=== PATIENT | female | born 1960 | race Hispanic/Latino ===

== ENCOUNTER 2024-07-09 14:34 | Emergency (ER) | payer BC ==
--- OUTSIDE RECORDS SUMMARY | 2024-07-09 14:36 | XMS REPORT | Continuity of Care Document ---
Author Name Unknown Address [address] [place] [address] [employer]connect Address [address] [place] [address] [address] [place] [address] Care Team Providers Care Public Health Informatician Name Role Phone [email or web address] Attending Clinician Unavaila ble [email or web address] Admitting Clinician Unavaila ble Encounters Start Date/Time End Date/Time Encounter Type Admission Type Attending Clinicians Care Facility Care Department Encounter ID Source 2023-06-09 00:00:00 2023-06-09 00:00:00 Outpatient [email or web address] [facility] [id number] [facility]
[2024-07-09] MEDS ORDERED: ALBUTEROL 2.5 MG/3 ML NEB SOL ONE (14:51)
[2024-07-09] MEDS ORDERED: IPRATROPIUM BROM 0.5MG/2.5ML ONE ×2 (14:51→16:40)
[2024-07-09] MEDS ORDERED: METHYLPREDNISOLONE 125 MG INJ ONE (14:51)
[2024-07-09] MEDS ORDERED: ACETAMINOPHEN 325 MG TABLET ONE (14:52)
[2024-07-09 15:11] LABS: SARS-CoV-2 Antigen CONTROL BLUE LINE VIS/BG OK; SARS-CoV-2 Antigen Rapid Res Negative (Negative)
--- NOTE | 2024-07-09 15:13 | RAD REPORT ---
EXAMINATION: ONE VIEW CHEST XR CLINICAL INDICATION: CONGESTION TECHNIQUE: Frontal chest projection is submitted. Examination is limited by patient positioning and t echnique. COMPARISON: 03/24/2021 FINDINGS: The lungs are well inflated and clear. The heart is upper limit of normal in size. No displaced fract ures identified. IMPRESSION: No acute intrathoracic abnormalities.
[2024-07-09] MEDS ORDERED: MAGNESIUM SULFATE 1 gm IVPB 1 GM/100 ML BAG IV ONE (16:39)
[2024-07-09] MEDS ORDERED: LEVALBUTEROL 1.25 MG/3 ML NEB ONE (16:40)
--- NOTE | 2024-07-09 17:26 | EDPHYS ---
Physician Documentation [facility] Name: Angelica Marte Age: 63 yrs Sex: Female : 1960 Arrival Date: 07/09/2024 Time: 14:34 Bed 5 Private MD: ED Physician Sky Paz HPI: 07/09 15:03 This 63 yrs old Female presents to ER via Ambulatory with complaints of Cough, rn Congestion, Sore Throat. 15:07 The patient or guardian reports cough, difficulty breathing, flu symptoms. rn 15:09 Onset: The symptoms/episode began/occurred last night. Severity of symptoms: At their rn worst the symptoms were mild, in the emergency department the symptoms are unchanged. Associated signs and symptoms: Pertinent positives: fever, rhinorrhea. The patient has not experienced similar symptoms in the past. The patient has not recently seen a physician. Patient reports history of asthma, started feeling sick yesterday with cough and shortness of breath with wheezing.. Historical: - Allergies: 14:41 No Known Allergies; hb - Family history:: not pertinent. - Hospitalizations: : No recent hospitalization is reported. ROS: 15:09 Constitutional: Negative for fever, chills, and weight loss, ENT: Positive for rn congestion and sore throat Cardiovascular: Negative for palpitations, and edema Respiratory: Positive for cough and shortness of breath Abdomen/GI: Negative for abdominal pain, nausea, vomiting, diarrhea, and constipation, MS/Extremity: Negative for injury and deformity, Skin: Negative for injury, rash, and discoloration, Neuro: Negative for headache, weakness, numbness, tingling, and seizure, Exam: 15:09 Constitutional: This is a well developed, well nourished patient who is awake, alert, rn mild tachypnea Cardiovascular: Regular rate and rhythm. No pulse deficits. Respiratory: No increased work of breathing, no retractions or nasal flaring. Abdomen/GI: Soft, non-tender MS/ Extremity: Pulses equal, no cyanosis. Neuro: Awake and alert, GCS 15 Vital Signs: 14:39 BP 145 / 85; Pulse 81; Resp 20; Temp 99; Pulse Ox 96% on R/A; Weight 47.63 kg; Height 5 hb ft. 0 in. ; Pain 3/10; 14:39 Body Mass Index 20.51 (47.63 kg, 152.4 cm) hb 14:39 Pain Scale: Adult hb MDM: 14:42 Medical Screening Exam initiated rn 17:23 Differential Diagnosis: Bronchitis Influenza Upper Respiratory Infection Viral Syndrome rn Pneumonia. Data reviewed: vital signs, nurses notes, lab test result(s), radiologic studies, plain films, and as a result, I will discharge patient. Consideration of Admission/Observation Escalation of care including admission/observation considered. Patient markedly improved, wants to go home as opposed to admission. No oxygen requirement. Will discharge home with strict return precautions.. Care significantly affected by the following chronic conditions: Chronic Obstructive Pulmonary Disease. Counseling: I had a detailed discussion with the patient and/or guardian regarding the historical points, exam findings, and any diagnostic results supporting the discharge/admit diagnosis, lab results, radiology results, the need for further work-up and treatment in the hospital. ED course: I personally spent 35 minutes engaged in work directly related to the individual patient's care. This does not include any time spent performing procedures. The patient has been deemed critically ill because of 6 nebulizer treatments, IV steroids and magnesium given for severe COPD exacerbation.. 07/09 14:41 Order name: Flu; Complete Time: 15:33 hb 07/09 14:41 Order name: SARS RAPID; Complete Time: 15:29 hb 07/09 14:41 Order name: Chest Single View XRAY; Complete Time: 15:29 hb Administered Medications: 15:02 Drug: MethylPrednisoLONE IVP 125 mg IVP once {Note: Given IM.} Route: IVP; Site: Other; 10 15:02 Drug: DuoNeb Nebulize (3:1) (2.5 mg - 0.5 mg) 3 ml Nebulizer once Route: Nebulizer; cm10 15:02 Drug: Acetaminophen PO 650 mg PO once Route: PO; cm10 16:42 Drug: Levalbuterol Inhalation 1.25 mg Inhalation once Route: Inhalation; cm10 16:42 Drug: Ipratropium Inhalation Aerosol 0.5 mg Inhalation once Route: Inhalation; cm10 16:52 Drug: Magnesium Sulfate IVPB 1 grams IVPB once over 1 hrs Route: IVPB; Infused Over: 1 cm10 hrs; Site: right forearm; 18:11 Drug: AZITHromycin PO 500 mg PO once Route: PO; 4 18:25 Follow up: Response: Medication administered at discharge. jb4 Disposition Summary: 07/09/24 17:25 Discharge Ordered Notes: Location: Home rn Problem: an acute exacerbation rn Symptoms: have improved rn Condition: Stable rn Diagnosis - COPD/ Chronic obstructive pulmonary disease with (acute) exacerbation rn - Fever, unspecified rn Followup: rn - With: Private Physician - When: As needed - Reason: Recheck today's complaints, Re-evaluation by your physician Discharge Instructions: - Discharge Summary Sheet rn - Chronic Obstructive Pulmonary Disease rn - Fever, Adult rn Forms: - Medication Reconciliation Form rn - Antibiotic learning design specialist - Prescription Opioid Use rn - Patient Portal Instructions rn - Leadership Thank You Letter rn Prescriptions: - albuterol sulfate 90 mcg/actuation Inhalation HFA Aerosol Inhaler - inhale 2 inhalation INHALATION route every 4 to 6 hours As needed as needed for rn bronchospasm; administer via ventilator; 1 unit; Refills: 0, Product Selection Permitted - Prednisone 20 mg Oral Tablet - take 3 tablets ORAL route once daily for 5 days; 15 tablet; Refills: 0, Product rn Selection Permitted - Albuterol Sulfate 2.5 mg /3 mL (0.083 %) Inhalation Solution for Nebulization - inhale 2 puff NEBULIZATION route every 8 hours As needed; 1 unit; Refills: 0, rn Product Selection Permitted - Zithromax Z-Mariano 250 mg Oral Tablet - take 1 tablet ORAL route as directed for 5 days Day 1 - take two (2) tablets rn one time. Day 2, 3, 4 , 5 take one (1) tablet once daily.; 6 tablet; Refills: 0, Product Selection Permitted Signatures: Dispatcher [employer] EDSky Vergara MD MD rn Baxter, Heather, RN RN hb Bryson, James, RN RN jb4 Alexandra Williamson RN RN cm10 Corrections: (The following items were deleted from the chart) 14:55 14:42 Group A Streptococcus Rapid [id number] ordered. EDMS EDMS
--- NOTE | 2024-07-09 17:26 | ER ---
Nurse's Notes [facility] Name: Angelica Marte Age: 63 yrs Sex: Female : 1960 Arrival Date: 07/09/2024 Time: 14:34 Bed 5 Private MD: Diagnosis: COPD/ Chronic obstructive pulmonary disease with (acute) exacerbation;Fever, unspecified Presentation: 07/09 14:39 Chief complaint: Painful cough, SOB, sore throat, headache, and chest tightness since hb last night. Coronavirus screen: Client presents with at least one sign or symptom that may indicate coronavirus-19. Provider contacted for isolation considerations. Ebola Screen: No symptoms or risks identified at this time. Initial Sepsis Screen: Does the patient meet any 2 criteria? No. Patient's initial sepsis screen is negative. Does the patient have a suspected source of infection? No. Patient's initial sepsis screen is negative. Risk Assessment: Do you want to hurt yourself or someone else? Patient reports no desire to harm self or others. Onset of symptoms was July 08, 2024. 14:39 Method Of Arrival: Ambulatory 14:39 Acuity: BELEN 3 hb Historical: - Allergies: 14:41 No Known Allergies; hb - Family history:: not pertinent. - Hospitalizations: : No recent hospitalization is reported. Assessment: 15:02 General: Appears in no apparent distress. uncomfortable, Behavior is calm, cooperative. cm10 Neuro: No deficits noted. Level of Consciousness is awake, alert, obeys commands, Oriented to person, place, time, situation. Respiratory: No deficits noted. Reports cough that is Airway is patent Respiratory effort is even, unlabored, Respiratory pattern is regular, symmetrical, Breath sounds with wheezes bilaterally. 18:25 Reassessment: Patient appears in no apparent distress at this time. Patient and/or jb4 family updated on plan of care and expected duration. Pain level reassessed. Patient is alert, oriented x 3, equal unlabored respirations, skin warm/dry/pink. Vital Signs: 14:39 BP 145 / 85; Pulse 81; Resp 20; Temp 99; Pulse Ox 96% on R/A; Weight 47.63 kg; Height 5 hb ft. 0 in. ; Pain 3/10; 14:39 Body Mass Index 20.51 (47.63 kg, 152.4 cm) hb 14:39 Pain Scale: Adult hb ED Course: 14:36 Patient arrived in ED. mg5 14:41 Triage completed. hb 14:42 Sky Paz MD is Attending Physician. rn 14:42 Arm band placed on. hb 14:48 Alexandra Williamson, RN is Primary Nurse. cm10 14:50 SARS RAPID Sent. ss 14:50 Flu Sent. ss 15:09 Chest Single View XRAY In Process Unspecified. EDMS 16:50 Inserted saline lock: 20 gauge in right forearm, using aseptic technique. Flushed with cm10 10 mL NS. 18:25 No provider procedures requiring assistance completed. IV discontinued, intact, jb4 bleeding controlled, No redness/swelling at site. Pressure dressing applied. Patient maintains SpO2 saturation greater than 95% on room air. Administered Medications: 15:02 Drug: MethylPrednisoLONE IVP 125 mg IVP once {Note: Given IM.} Route: IVP; Site: Other; cm10 15:02 Drug: DuoNeb Nebulize (3:1) (2.5 mg - 0.5 mg) 3 ml Nebulizer once Route: Nebulizer; cm10 15:02 Drug: Acetaminophen PO 650 mg PO once Route: PO; cm10 16:42 Drug: Levalbuterol Inhalation 1.25 mg Inhalation once Route: Inhalation; cm10 16:42 Drug: Ipratropium Inhalation Aerosol 0.5 mg Inhalation once Route: Inhalation; cm10 16:52 Drug: Magnesium Sulfate IVPB 1 grams IVPB once over 1 hrs Route: IVPB; Infused Over: 1 cm10 hrs; Site: right forearm; 18:11 Drug: AZITHromycin PO 500 mg PO once Route: PO; jb4 18:25 Follow up: Response: Medication administered at discharge. jb4 Medication: 18:25 VIS not applicable for this client. jb4 Outcome: 17:25 Discharge ordered by . rn 18:25 Discharged to home ambulatory, with family, jb4 18:25 Condition: stable 18:25 Discharge instructions given to patient, Instructed on discharge instructions, follow up and referral plans. medication usage, Demonstrated understanding of instructions, follow-up care, medications, Prescriptions given X 4, 18:27 Patient left the ED. jb4 Signatures: Dispatcher [employer] EDTN Sky Paz MD MD rn Blanchard, Shelby, RN RN ss Baxter, Heather, RN RN Yanick Meza RN RN jb4 Alexandra Williamson RN RN cm10 Arelis Nuñez mg5 Corrections: (The following items were deleted from the chart) 14:42 14:39 BP 145 / 85; Pulse 81bpm; Resp 20bpm; Pulse Ox 95% RA; Temp 99F; 47.63 kg; Height hb 5 ft. 0 in.; BMI: 20.5; Pain 3/10, Adult; hb 14:46 14:39 Acuity: BELEN 4 hb hb
[2024-07-09] MEDS ORDERED: AZITHROMYCIN 250 MG TAB ONE (18:09)
[2024-07-09 19:46] VITALS: BP 145/85; TEMP 99; O2SAT 96
== END 2024-07-09 18:27 | disposition home or self-care (01) ==
LOC: ER 14:34
DX: J44.1 Chronic obstructive pulmonary disease with (acute) exacerbation (principal); R50.9 Fever, unspecified; Z11.52 Encounter for screening for COVID-19
CPT/HCPCS: 36415; 87804 ×2; 71045; 99285; 87811; J3475; J7614; J7613; J7644 ×2; J2919